=== PATIENT | male | born 1940 | race Caucasian/White ===

== ENCOUNTER 2016-05-25 12:49 | Inpatient (IN) | payer MEDICARE, OTHER ==
[~2016-05-25] VITALS: Ht 172.7 cm; Wt 77.2 kg
[2016-05-31] MEDS ORDERED: ATOR10TA15 PO (12:11)
[2016-05-31] MEDS ORDERED: AVOD0.5C PO (12:11)
[2016-05-31] MEDS ORDERED: CIAL5TAB PO (12:12)
[2016-05-31] MEDS ORDERED: TRIA37.53 PO (12:12)
[2016-05-31] MEDS ORDERED: SIME1CHW13 CHEW (12:14)
[2016-05-31] MEDS ORDERED: ZYRT10CA PO (12:14)
[2016-05-31] MEDS ORDERED: RANI1TAB5 PO (12:14)
[2016-05-31] MEDS ORDERED: VIAG100T PO (12:14)
[2016-05-31] MEDS ORDERED: MUCI30TA2 PO (12:14)
[2016-06-02] MEDS ORDERED: SODIUM CHLORID 0.9% 500 ML IV SCH (06:30)
[2016-06-02] MEDS ORDERED: LACTATED RINGER'S 1000 ML IV SCH (06:30)
[2016-06-02] MEDS ORDERED: INSULIN HUMAN REGULAR 1,000 UNITS/10 ML VIAL SQ PRN (06:30)
[2016-06-02] MEDS ORDERED: METOPROLOL TARTRATE 25 MG TAB PO PRN (06:30)
[2016-06-02] MEDS ORDERED: SODIUM CHLOR 0.9% 1000 ML INJ 1,000 ML IV SCH (06:30)
[2016-06-02] MEDS ORDERED: VANCOMYCIN HCL 1000 MG ON-CALL/NS 250 ML IV SCH ×2 (06:30)
[2016-06-02] MEDS ORDERED: SUGAMMADEX SODIUM 200 MG/2 ML VIAL IV PUSH ONE ×2 (07:02)
[2016-06-02 07:03] VITALS: BP 161/81; PULSE 65; RESP 18; TEMP 98.5; O2SAT 98
[2016-06-02] MEDS ORDERED: DEXAMETHASONE SOD PHOS 4 MG/ML VIAL ONE (07:03)
[2016-06-02] MEDS ORDERED: ACETAMINOPHEN 1000 MG/100 ML VIAL IV ONE (07:03)
[2016-06-02] MEDS ORDERED: HYDROmorphone HCL PF 2 MG/ML VIAL ONE (07:03)
[2016-06-02] MEDS ORDERED: GELFOAM SIZE 100 ONE ×2 (07:12→10:19)
[2016-06-02] MEDS ORDERED: THROMBIN (TOPICAL) 5,000 UNIT VIAL ONE ×2 (07:12→10:19)
[2016-06-02] MEDS ORDERED: BUPIVACAINE/EPINEPHRINE 0.25% 50 ML VIAL ONE (07:13)
[2016-06-02] MEDS ORDERED: ARTIFICIAL TEARS OPTH OINT 3.5 APPLIC/3.5 GM TUBO ONE (08:37)
[2016-06-02] MEDS ORDERED: ONDANSETRON HCL 4 MG/2 ML VIAL IV PUSH ONE (08:38)
[2016-06-02] MEDS ORDERED: NEOSTIGMINE 3 MG/3 ML SYR IV ONE (08:38)
[2016-06-02] MEDS ORDERED: PROPOFOL 200 MG/20 ML AMP IV ONE (08:38)
[2016-06-02] MEDS ORDERED: LACTATED RINGER'S 1000 ML INJ 1,000 ML IV ONE (08:38)
[2016-06-02] MEDS ORDERED: PHENYLEPH/NS 1000 MCG/10 ML SYR IV ONE (08:38)
[2016-06-02] MEDS ORDERED: BUPIVACAINE/EPINEPHRINE 0.5% 50 ML VIAL INFIL ONE (09:33)
[2016-06-02] MEDS: VANCOMYCIN HCL 1000 MG VIAL ONE ×2 (09:50→11:33)
[2016-06-02] MEDS ORDERED: MIDAZOLAM HCL 2 MG/2 ML VIAL ONE (12:13)
[2016-06-02] MEDS ORDERED: fentaNYL CITRATE 250 MCG/5 ML AMP ONE (12:13)
[2016-06-02] MEDS ORDERED: ZOLPIDEM TARTRATE 5 MG TAB PO PRN (12:15)
[2016-06-02] MEDS ORDERED: MAGNESIUM HYDROXIDE SUSP 30 ML CUP PO PRN (12:15)
[2016-06-02] MEDS ORDERED: SIMETHICONE 125 MG CHEWABLE TAB CHEW PRN (12:15)
[2016-06-02] MEDS ORDERED: ALUMINUM/MAGNESIUM/SIMETH 30 ML CUP PO PRN (12:15)
[2016-06-02] MEDS ORDERED: MAGNESIUM SULFATE INJ 2 GM in SODIUM CHLORIDE 0.9% INJ 100 ML IV PRN (12:15)
[2016-06-02] MEDS ORDERED: GUAIFENESIN PO PRN (12:15)
[2016-06-02] MEDS ORDERED: CETIRIZINE HCL 10 MG TAB PO PRN (12:15)
[2016-06-02] MEDS ORDERED: RESP: ALBUTEROL 2.5 MG/3 ML NEB (PRN) NEB (12:15)
[2016-06-02] MEDS ORDERED: POTASSIUM CHLOR 20 MEQ PREMIX 100 ML IV PRN (12:15)
[2016-06-02] MEDS ORDERED: diphenhydrAMINE HCL 50 MG/ML VIAL IV PRN (12:15)
[2016-06-02] MEDS ORDERED: CALCIUM GLUCONATE INJ 1 GM in SODIUM CHLORIDE 0.9% INJ 100 ML IV PRN (12:15)
[2016-06-02] MEDS ORDERED: ACETAMINOPHEN/HYDROcodone 325 MG/10 MG TAB PO PRN (12:15)
[2016-06-02] MEDS ORDERED: NALOXONE HCL 0.4 MG/ML AMP IV PRN (12:15)
[2016-06-02] MEDS ORDERED: DEXTROMETHORPHAN PO PRN (12:15)
[2016-06-02] MEDS ORDERED: CYCLOBENZAPRINE HCL 10 MG TAB PO PRN (12:15)
[2016-06-02] MEDS ORDERED: ONDANSETRON HCL 4 MG/2 ML VIAL IV PRN (12:15)
[2016-06-02] MEDS ORDERED: PROMETHAZINE INJ 25 MG/ML VIAL IM PRN (12:15)
[2016-06-02] MEDS ORDERED: ACETAMINOPHEN 325 MG TAB PO PRN (12:15)
[2016-06-02] MEDS ORDERED: SODIUM CHLORIDE 0.9% FLUSH 5 ML FLUSH IVF PRN (12:15)
[2016-06-02] MEDS ORDERED: cloNIDine HCL 0.1 MG TAB PO PRN (12:15)
[2016-06-02] MEDS ORDERED: BISACODYL 10 MG SUPP PR PRN (12:15)
--- NOTE | 2016-06-02 12:20 | PD.OP ---
cc: Aydin Oleary MD Operative Report Date of Surgery: Jun 02, 2016 Preoperative Diagnosis: Severe L4-5 degenerative disc disease with a grade 1 spondylolisthesis and facet arthropathy with foraminal stenosis; Intractable low back pain with right L4 radiculopathy Postoperative Diagnosis: Same Procedure: Right L4-5 transforaminal decompression with interbody fusion; L4-5 pedicle screw fixation; microsurgical technique Anesthesia: Gen. endotracheal by Amalia Cornejo Surgeon: Jed Giordano M.D. Statistician(s): Cyndi Redd Operation and Findings: Following initiation of general endotracheal anesthesia, the patient had a Cortez catheter placed along with sequential compression devices. A gram of vancomycin was administered intravenously and he was turned in a prone position on a Pierre frame, on a Alli table, and all pressure points adequately padded. The lumbosacral region was then prepped with Chloraprep and sterilely draped with Ioban along the usual sterile draping. A right paraspinal skin incision was then made extending from the L4-L5 level after infiltrating the skin with 0.5% Marcaine with epinephrine solution extending down through the fascia. The muscle fibers were split using avascular fatty plane and detached from the underlying facets, transverse process and lateral portion of lamina on the right side and a self-retaining retractor used for exposure. Intraoperative fluoroscopy was also used for level of confirmation along with microscope magnification for further dissection. There was significant facet and ligamentum flavum hypertrophy noted at the L4-5 levels. Right L4-5 facet was resected with a drill bit along with the lamina and there was severe foraminal and lateral recess stenosis from hypertrophied ligamentum flavum and facet which were decompressed bilaterally through the usual lateral approach. There was significant disc height collapse along with disc protrusion also leading to the foraminal stenosis along with osteophytes which were resected. Epidural hemostasis was achieved with bipolar cautery and Gelfoam with thrombin. Subsequently entered into the disc space at the L4-5 level with a #15 blade and boone were used for discectomy although this disc height was severely collapsed. I then packed the interspace with local autograft bone. Subsequently in order to facilitate the fusion and provide stabilization, pedicle screw fixation was undertaken using [place] spine screws on entry point at the right L4-5 levels at the junction of the transverse process and facet. Subsequently using AP and lateral fluoroscopy tap and screw placement. The screws were then connected with a kristen and locked in place with caps. The construct appeared very secure at this point. The area was then copiously irrigated with Vancomycin solution and powder. The retractors were removed and the bipolar cautery used for hemostasis. The muscle fascia was then approximated using 2-0 Vicryl interrupted stitches and then 3-0 Vicryl subcuticular stitches also placed in interrupted fashion. The final skin closure was completed with Mastisol and Steri-Strips. A sterile dressing was then applied. The patient then turned in supine position, extubated and taken to recovery room. There were no intraoperative complications. All sponge and needle counts were correct at the end of procedure. Estimated blood loss about 100 ml. Jed Giordano MD Jun 02, 2016 12:20
[2016-06-02] MEDS: NS + KCL 20 MEQ INJ 1,000 ML IV SCH ×2 (12:38→21:40)
[2016-06-02] MEDS ORDERED: *morphine SULFATE 8 MG/ML PERIprocedure ONLY ONE (12:45)
[2016-06-02] MEDS ORDERED: DEXTROMETHORPHAN SYRUP 7.5MG/5ML UDC PO PRN (13:00)
[2016-06-02] MEDS ORDERED: MORPHINE SULFATE 30 MG/30 ML PCA IV SCH (13:00)
[2016-06-02] MEDS ORDERED: PILL SPLITTER OTHER PRN (13:15)
[2016-06-02] MEDS ORDERED: DO NOT ADM ANY ANTICOAGULANT DRUGS XX PRN (13:30)
--- NOTE | 2016-06-02 13:32 | RADRPT ---
"EXAM DATE/TIME: 06/02/2016 07:50 [facility] COMPARISON: No previous studies available for comparison. INDICATIONS : Lamminectomy with screw and kristen placement L4,L5. MEDICAL HISTORY : None. SURGICAL HISTORY : None. ENCOUNTER: Initial ACUITY: 1 day PAIN SCORE: Non-responsive. LOCATION: Lumbar spine. FINDINGS: Matrix views reveal placement of transpedicular screws right side L4-5 with a single |. Alignment is negative CONCLUSION: Postsurgical change fusion right side L4-5 Vaibhav Miller MD on June 02, 2016 at 13:31 Board Certified Radiologist. This report was verified electronically."
[2016-06-02 13:47] LABS: BASOPHIL % 0.2 % (0.0-2.0); HEMATOCRIT 41.9 % (39.0-51.0); HEMO FLAGS DIFF FINAL; LYMPH % 5.2 % (9.0-44.0); LYMPHOCYTE # 0.7 TH/MM3 (1.0-4.8); MEAN CELL VOLUME 90.6 FL (80.0-100.0); MEAN CORPUSCULAR HEMOGLOBIN 29.2 PG (27.0-34.0); MEAN CORPUSCULAR HGB CONC 32.2 % (32.0-36.0); MONO % 1.1 % (0.0-8.0); NEUT % 93.5 % (16.0-70.0); PLATELET COUNT 196 TH/MM3 (150-450); RED BLOOD COUNT 4.63 MIL/MM3 (4.50-5.90); RED CELL DISTRIBUTION WIDTH 13.4 % (11.6-17.2); WHITE BLOOD COUNT 13.9 TH/MM3 (4.0-11.0)
[2016-06-02] MEDS: PCA - TOTAL MG MORPHINE DELIVERED PER SHIFT SCH ×2 (14:00→22:00)
[2016-06-02 14:19] LABS: BICARBONATE 25.4 MEQ/L (21.0-32.0); MAGNESIUM 1.6 MG/DL (1.5-2.5); POTASSIUM 3.7 MEQ/L (3.5-5.1)
[2016-06-02] MEDS: MENTHOL LOZENGE SUCK-ON PRN (14:35)
[2016-06-02 15:30] VITALS: BP 128/61; PULSE 78; RESP 19; TEMP 97.1; O2SAT 96
[2016-06-02] MEDS: ACETAMINOPHEN/HYDROcodone 325 MG/10 MG TAB PO PRN (17:01)
[2016-06-02 19:00] VITALS: BP 130/59; PULSE 76; RESP 17; TEMP 96.9; O2SAT 96
[2016-06-02 20:37] VITALS: O2SAT 96
[2016-06-02] MEDS ORDERED: TADALAFIL PO SCH (21:00)
[2016-06-02] MEDS: ATORVASTATIN 10 MG TAB PO SCH (21:41)
[2016-06-02] MEDS: DOCUSATE SODIUM 100 MG CAP PO SCH (21:41)
[2016-06-02] MEDS: TRIAMTERENE/HCTZ 37.5 MG/25 MG CAP PO SCH (21:41)
[2016-06-02] MEDS: SODIUM CHLORIDE 0.9% FLUSH 5 ML FLUSH IVF SCH (21:42)
[2016-06-02] MEDS: FINASTERIDE 5 MG TAB PO SCH (21:42)
[2016-06-02] MEDS: guaiFENesin E.R. 600 MG TAB PO PRN (21:45)
[2016-06-02 23:45] VITALS: BP 125/97; PULSE 88; RESP 18; TEMP 97.7; O2SAT 96
[2016-06-03] VITALS (7 sets, daily range): BP systolic 110–139; BP diastolic 55–62; PULSE 68–87; RESP 16–20; TEMP 95.9–99; O2SAT 93–98
[2016-06-03] MEDS ORDERED: FAMOTIDINE 20 MG TAB PO PRN (01:15)
[2016-06-03] MEDS: PCA - TOTAL MG MORPHINE DELIVERED PER SHIFT SCH (06:00)
[2016-06-03] MEDS: ACETAMINOPHEN/HYDROcodone 325 MG/10 MG TAB PO PRN ×3 (06:07→20:40)
--- NOTE | 2016-06-03 08:49 | HHI.NSPN ---
(Eleazar Genao) History Chief Complaint: Incisional pain controlled. (Eleazar Genao) Interval History 06/03/16: Pt underwent a L4/L5 TLIF with cage and pedicle screw fixation. He complains of incisional pain but states its controlled with current CATHODE MAKER. He states he has some difficulty with thought processing and would like to try to stop the CATHODE MAKER and use just the pain pills. He denies any radiculopathy or paresthesias in LEs. (Eleazar Genao) Review of Systems General: Negative for: fever, chills, insomnia Respiratory: Negative for: shortness of breath, cough, sputum Cardiovascular: Negative for: chest pain Gastrointestinal: Negative for: nausea, vomitting, diarrhea, constipation ( Eleazar Genao) Exam Results Vital Signs Date Time Temp Pulse Resp B/P Pulse Ox O2 Delivery O2 Flow Rate FiO2 06/03/16 06:00 17 06/03/16 04:00 99.0 86 110/55 96 06/02/16 21:38 Nasal Cannula 2.00 Intake and Output 06/02/16 06/02/16 06/03/16 08:00 16:00 00:00 Intake Total 1500 ml 765 ml Output Total 325 ml Balance 1175 ml 765 ml (Eleazar Genao) Physical Examination Resp: CTA bilaterally Heart: NSR no murmurs Abd: Soft positive bs Skin: No cyanosis or erythema. RN changed bandage this morning. Muscle: Moves LEs with good strength Neuro: Pt awake and alert. Follows commands well. Speech clear and appropriate. Some difficulty with thought processes per pt. (Eleazar Genao) Lab, Micro, Other Results Laboratory Tests Test 06/02/16 12:36 White Blood Count 13.9 TH/MM3 Red Blood Count 4.63 MIL/MM3 Hemoglobin 13.5 GM/DL Hematocrit 41.9 % Mean Corpuscular Volume 90.6 FL Mean Corpuscular Hemoglobin 29.2 PG Mean Corpuscular Hemoglobin 32.2 % Concent Red Cell Distribution Width 13.4 % Platelet Count 196 TH/MM3 Mean Platelet Volume 10.9 FL Neutrophils (%) (Auto) 93.5 % Lymphocytes (%) (Auto) 5.2 % Monocytes (%) (Auto) 1.1 % Eosinophils (%) (Auto) 0.0 % Basophils (%) (Auto) 0.2 % Neutrophils # (Auto) 13.0 TH/MM3 Lymphocytes # (Auto) 0.7 TH/MM3 Monocytes # (Auto) 0.2 TH/MM3 Eosinophils # (Auto) 0.0 TH/MM3 Basophils # (Auto) 0.0 TH/MM3 CBC Comment DIFF FINAL Differential Comment Sodium Level 140 MEQ/L Potassium Level 3.7 MEQ/L Chloride Level 104 MEQ/L Carbon Dioxide Level 25.4 MEQ/L Anion Gap 11 MEQ/L Blood Urea Nitrogen 20 MG/DL Creatinine 1.16 MG/DL Estimat Glomerular Filtration 61 ML/MIN Rate Random Glucose 145 MG/DL Calcium Level 8.8 MG/DL Magnesium Level 1.6 MG/DL 06/02/16 06/02/16 06/03/16 15:00 23:00 07:00 Intake Total 1500 ml 765 ml 1173 ml Output Total 325 ml 700 ml Balance 1175 ml 765 ml 473 ml Intake Oral 0 ml 480 ml IV Total 400 ml 765 ml 693 ml Other 1100 ml Output Urine Total 700 ml Estimated Blood Loss 100 ml Other 225 ml # Voids 1 # Bowel Movements 0 (Eleazar Genao) Medical Decision Making Impression and Plan A: 75 y/o M s/p L4/L5 TLIF with cage and pedicle screw fixation. P: Continue to monitor D/C CATHODE MAKER per pts request PT (Eleazar Genao) Attending Statement The exam, history, and the medical decision-making described in the above note were completed with the assistance of the mid-level provider. I reviewed and agree with the findings presented. I attest that I had a [id number] encounter with the patient on the same day, and personally performed and documented my assessment and findings in the medical record. (Jed Giordano MD) Eleazar Genao Jun 03, 2016 08:49 Jed Giordano MD Jun 03, 2016 17:18
[2016-06-03] MEDS ORDERED: ACETAMINOPHEN/HYDROcodone 325 MG/10 MG TAB PO PRN (09:00)
[2016-06-03] MEDS: MENTHOL LOZENGE SUCK-ON PRN (09:00)
[2016-06-03] MEDS: guaiFENesin E.R. 600 MG TAB PO PRN (09:00)
[2016-06-03] MEDS ORDERED: MORPHINE SULFATE 4 MG/ML INJ IV PUSH PRN (09:00)
[2016-06-03] MEDS: PANTOPRAZOLE SOD 40 MG DELAYED RELEASE TAB PO SCH (09:00)
[2016-06-03] MEDS: DOCUSATE SODIUM 100 MG CAP PO SCH ×2 (09:00→20:40)
[2016-06-03] MEDS: SODIUM CHLORIDE 0.9% FLUSH 5 ML FLUSH IVF SCH ×2 (09:00→20:42)
[2016-06-03] MEDS ORDERED: PNEUMOCOCCAL POLYVALENT INJ 25 MCG/0.5 ML SYR IM ONE (10:00)
[2016-06-03] MEDS ORDERED: INFLUENZA VIRUS VACCINE (QUADRIVALENT) 0.5 ML SYR IM ONE (10:00)
--- NOTE | 2016-06-03 16:17 | HHI.FF ---
Face to Face Verification Diagnosis: (1) Low back pain (2) Facet arthropathy, lumbar (3) Lumbar degenerative disc disease (4) Lumbar foraminal stenosis Physical Therapy Order: Evaluate and Treat, Improve ambulation, Strength and gait training Home Health Nursing Order: Wound care and dressing changes Nursing assessment with vital signs I have seen patient Luke Slaughter on 06/03/16. My clinical findings support the need for the requested home health care services because: Deconditioned w/ increased weakness High risk of falls I certify that my clinical findings support that this patient is homebound because: Post-op weakness Unsteady gait/balance Unable to use public transportation Eleazar Genao Jun 03, 2016 16:17
[2016-06-03] MEDS ORDERED: CYCL1TAB29 PO (17:23)
[2016-06-03] MEDS ORDERED: HYDR-3535 PO (17:23)
[2016-06-03] MEDS: ATORVASTATIN 10 MG TAB PO SCH (20:40)
[2016-06-03] MEDS: TRIAMTERENE/HCTZ 37.5 MG/25 MG CAP PO SCH (20:40)
[2016-06-03] MEDS: FINASTERIDE 5 MG TAB PO SCH (20:40)
[2016-06-04] VITALS: BP 105/57; PULSE 83; RESP 22; TEMP 98.8; O2SAT 95
[2016-06-04 04:00] VITALS: BP 116/59; PULSE 75; RESP 20; TEMP 98.9; O2SAT 94
[2016-06-04] MEDS: ACETAMINOPHEN/HYDROcodone 325 MG/10 MG TAB PO PRN ×3 (04:07→12:39)
[2016-06-04 08:31] VITALS: BP 114/55; PULSE 69; RESP 16; TEMP 98.6; O2SAT 93
[2016-06-04 08:40] VITALS: O2SAT 94
[2016-06-04] MEDS: PANTOPRAZOLE SOD 40 MG DELAYED RELEASE TAB PO SCH (08:46)
[2016-06-04] MEDS: DOCUSATE SODIUM 100 MG CAP PO SCH (08:46)
[2016-06-04] MEDS: SODIUM CHLORIDE 0.9% FLUSH 5 ML FLUSH IVF SCH (08:47)
[2016-06-04 12:00] VITALS: BP 144/69; PULSE 81; RESP 16; TEMP 97.5; O2SAT 92
--- NOTE | 2016-06-04 12:19 | HHI.DCPOC ---
Discharge Care Plan Diagnosis: (1) Status post lumbar spinal fusion Goals to Promote Your Health * To prevent worsening of your condition and complications * To maintain your health at the optimal level Directions to Meet Your Goals Take your medications as prescribed Follow your dietary instruction Follow activity as directed Keep your appointments as scheduled Take your immunizations and boosters as scheduled If your symptoms worsen call your PCP, if no PCP go to Urgent Care Center or Emergency Room Smoking is Dangerous to Your Health. Avoid second hand smoke Call the 24-hour hour crisis hotline for domestic abuse at Soraya Huffman Jun 04, 2016 12:19
--- NOTE | 2016-06-04 12:20 | HHI.NSPN ---
(Soraya Huffman) Note Status Status: Progress Note (Soraya Huffman) Interval History Interval History 06/03/16: Pt underwent a L4/L5 TLIF with cage and pedicle screw fixation. He complains of incisional pain but states its controlled with current FIELD SERVICE REPRESENTATIVE. He states he has some difficulty with thought processing and would like to try to stop the FIELD SERVICE REPRESENTATIVE and use just the pain pills. He denies any radiculopathy or paresthesias in LEs. 06/04: doing well, reports pain controlled with oral pain medications. ambulating. would like to go home today. denies any new symptoms overnight. ( Soraya Huffman) Labs, Micro, & Vital Signs Results Date Time Temp Pulse Resp B/P Pulse Ox O2 Delivery O2 Flow Rate FiO2 06/04/16 08:40 94 06/04/16 08:31 98.6 69 16 114/55 93 06/04/16 04:00 98.9 75 20 116/59 94 06/04/16 00:00 98.8 83 22 105/57 95 06/03/16 20:08 97 06/03/16 20:00 98.5 68 16 132/60 98 06/03/16 16:54 18 06/03/16 16:00 98.5 70 20 139/60 95 06/04/16 07:00 Intake Total 1200 ml Output Total 130 ml Balance 1070 ml Constitutional Vital Signs Date Time Temp Pulse Resp B/P Pulse Ox O2 Delivery O2 Flow Rate FiO2 06/04/16 08:40 94 06/04/16 08:31 98.6 69 16 114/55 93 06/04/16 04:00 98.9 75 20 116/59 94 06/04/16 00:00 98.8 83 22 105/57 95 06/03/16 20:08 97 06/03/16 20:00 98.5 68 16 132/60 98 06/03/16 16:54 18 06/03/16 16:00 98.5 70 20 139/60 95 06/04/16 07:00 Intake Total 1200 ml Output Total 130 ml Balance 1070 ml (Soraya Huffman) Review of Systems/Exam Exam Mr. Coronado is alert, sitting up in chair comfortably with back brace. Speech is fluent. Cranial nerve examination: pupils to be equal, round and reactive to light. Extra-ocular movements are intact. Facial motor are normal and symmetrical. Gross hearing appears intact. Neck: soft, supple Muscle strength: 5/5 to both iliopsoas, quadriceps, hamstrings, plantarflexion and dorsiflexion in lower extremities. stood up from chair without difficulties (Soraya Huffman) Medications Current Medications Current Medications Medications (Trade) Dose Ordered Sig/Veto Route PRN Reason Start Time Stop Time Status Last Admin Dose Admin Atorvastatin Calcium (Lipitor) 10 mg HS PO 06/02/16 21:00 06/03/16 20:40 Cetirizine HCl (ZyrTEC) 10 mg DAILY PRN PO ALLERGIES 06/02/16 12:15 Famotidine (Pepcid) 20 mg DAILY PRN PO HEARTBURN 06/03/16 01:15 Simethicone (Phazyme Chew) 125 mg DAILY PRN CHEW GAS RETENTION 06/02/16 12:15 Triamterene/HCTZ (Dyazide 37.5-25 Mg) 1 cap HS PO 06/02/16 21:00 06/03/16 20:40 Finasteride (Proscar) 5 mg HS PO 06/02/16 21:00 06/03/16 20:40 Patient Own Medication PT OWN MED: DIRK... HS PO 06/02/16 21:00 Hold IV Flush (NS Flush) 2 ml UNSCH PRN IVF FLUSH AFTER USING IV ACCESS 06/02/16 12:15 IV Flush (NS Flush) 2 ml BID IVF 06/02/16 21:00 06/04/16 08:47 Bisacodyl (Dulcolax Supp) 10 mg DAILY PRN MT CONSTIPATION 06/02/16 12:15 Docusate Sodium (Colace) 100 mg BID PO 06/02/16 21:00 06/04/16 08:46 Magnesium Hydroxide (Milk Of Magnesia Liq) 30 ml DAILY PRN PO CONSTIPATION 06/02/16 12:15 06/03/16 19:19 Al Hydrox/Mg Hydrox/Simethicone (Mag-Al Plus Susp Liq) 30 ml Q6H PRN PO DYSPEPSIA 06/02/16 12:15 Pantoprazole Sodium (Protonix) 40 mg DAILY PO 06/03/16 09:00 06/04/16 08:46 Ondansetron HCl (Zofran Inj) 4 mg Q6H PRN IV NAUSEA OR VOMITING 06/02/16 12:15 06/02/16 21:40 Promethazine HCl 25 mg 25 mg Q4H PRN IM NAUSEA OR VOMITING 06/02/16 12:15 06/03/16 19:20 Calcium Gluconate 1 gm/Sodium Chloride 110 ml @ 110 mls/hr UNSCH PRN IV SEE LABEL COMMENTS 06/02/16 12:15 Potassium Chloride 100 ml @ 50 mls/hr UNSCH PRN IV POTASSIUM LESS THAN 4 06/02/16 12:15 Magnesium Sulfate/ Sodium Chloride (Magnesium Sulfate Inj/NS Inj) 104 ml @ 100 mls/hr UNSCH PRN IV MAGNESIUM LESS THAN 2 06/02/16 12:15 Acetaminophen/ Hydrocodone Bitart ([place] 10-325 Mg) 1 tab Q4H PRN PO PAIN SCALE 1 TO 5 06/02/16 12:15 06/04/16 08:47 Acetaminophen/ Hydrocodone Bitart ([place] 10-325 Mg) 2 tab Q4H PRN PO PAIN SCALE 6 TO 10 06/02/16 12:15 Cyclobenzaprine HCl (Flexeril) 10 mg Q8H PRN PO MUSCLE SPASM 06/02/16 12:15 Clonidine (Catapres) 0.1 mg Q6H PRN PO SYS BP GREATER THAN 170 MMHG 06/02/16 12:15 Acetaminophen (Tylenol) 650 mg Q4H PRN PO TEMPERATURE > 101.5 F 06/02/16 12:15 Menthol ([place] Shae) 1 lozenge UNSCH PRN SUCK-ON SORE THROAT 06/02/16 12:15 06/03/16 09:00 Zolpidem Tartrate (Ambien) 5 mg HS PRN PO INSOMNIA 06/02/16 12:15 Naloxone HCl (Narcan Inj) 0.4 mg UNSCH PRN IV RESPIRATORY RATE LESS THAN 10 06/02/16 12:15 Diphenhydramine HCl (Benadryl Inj) 25 mg Q6H PRN IV ITCHING 06/02/16 12:15 Guaifenesin (Mucinex Er) 600 mg BID PRN PO CHEST CONGESTION AND/OR COUGH 06/02/16 13:00 06/03/16 09:00 Dextromethorphan (Robitussin [place] Pediatric Cough Liq) 10 mg Q4H PRN PO CHEST CONGESTION AND/OR COUGH 06/02/16 13:00 Miscellaneous (Pill Splitter) 1 ea UNSCH PRN OTHER SEE LABEL COMMENTS 06/02/16 13:15 Acetaminophen/ Hydrocodone Bitart ([place] 10-325 Mg) 1 tab Q4H PRN PO PAIN SCALE 4 TO 10 06/03/16 09:00 Morphine Sulfate (Morphine Inj) 2 mg Q2HR PRN IV PUSH PAIN SCALE 6 TO 10 06/03/16 09:00 (Soraya Huffman) Medical Decision Making MDM Remarks 75 y/o male s/p L4/L5 TLIF with cage and pedicle screw fixation with Dr. Giordano , doing well, ambulating, surgical pain controlled (Soraya Huffman) Plan Plan Remarks neuro stable dc home with [facility] dw pt again regarding activity restrictions, s/s to watch for follow up with Dr. Giordano in 1 week or as scheduled (Soraya Huffman) Attending Statement The exam, history, and the medical decision-making described in the above note were completed with the assistance of the mid-level provider. I reviewed and agree with the findings presented. I attest that I had a [id number] encounter with the patient on the same day, and personally performed and documented my assessment and findings in the medical record. (Babak Burnett MD) Soraya Huffman Jun 04, 2016 12:20 Babak Burnett MD Jun 05, 2016 18:37
== END 2016-06-04 13:16 | disposition home health service (06) | DRG 460 ==
LOC: HSDI 06-02 05:53 → N06B 06-02 14:06
PROVIDERS: ADMIT Neurological Surgery; ATTEND Neurological Surgery
PROC: 0ST20ZZ Resection of Lumbar Vertebral Disc, Open Approach (ICD-10-PCS; 2016-06-02)
PROC: 0QB00ZZ Excision of Lumbar Vertebra, Open Approach (ICD-10-PCS; 2016-06-02)
PROC: 0SG00AJ Fusion of Lumbar Vertebral Joint with Interbody Fusion Device, Posterior Approach, Anterior Column, Open Approach (ICD-10-PCS; principal; 2016-06-02 08:38)
DX: M51.16 Intervertebral disc disorders with radiculopathy, lumbar region (principal); M25.78 Osteophyte, vertebrae; M48.06 Spinal stenosis, lumbar region; Z23 Encounter for immunization
CPT/HCPCS: 36415; 71020; 72100; 76000; 80048; 80053; 81001; 83735; 85025; 85610; 85730; 86850; 86900; 86901; 86920; 90471; 90472; 90686; 90732; 93005; 94150; C1713; G0008; G0009; J0131; J0690; J1100; J1170; J2250; J2270; J2370; J2405; J2550; J2710; J3010; J3370; J3480; J7050; J7120; Q2038

== ENCOUNTER → 2016-05-31 | Outpatient (CLI) | payer MEDICARE, OTHER ==
[~2016-05-31] MED LIST: ATOR10TA15 PO; AVOD0.5C PO; CIAL5TAB PO; CYCL1TAB29 PO; HYDR-3535 PO; MUCI30TA2 PO; RANI1TAB5 PO; SIME1CHW13 CHEW; TRIA37.53 PO; VIAG100T PO; ZYRT10CA PO
[2016-05-31 12:28] LABS: AUTOMATED NEUTROPHIL # 5.9 TH/MM3 (1.8-7.7); BASOPHIL % 0.5 % (0.0-2.0); EOSINOPHIL # 0.1 TH/MM3 (0-0.4); EOSINOPHIL % 1.1 % (0.0-4.0); HEMATOCRIT 43.8 % (39.0-51.0); HEMO FLAGS DIFF FINAL; LYMPH % 13.2 % (9.0-44.0); MEAN CORPUSCULAR HEMOGLOBIN 29.7 PG (27.0-34.0); MEAN CORPUSCULAR HGB CONC 33.4 % (32.0-36.0); MONO % 8.4 % (0.0-8.0); NEUT % 76.8 % (16.0-70.0); PLATELET COUNT 194 TH/MM3 (150-450); RED BLOOD COUNT 4.92 MIL/MM3 (4.50-5.90); RED CELL DISTRIBUTION WIDTH 13.2 % (11.6-17.2); WHITE BLOOD COUNT 7.7 TH/MM3 (4.0-11.0)
[2016-05-31 12:32] LABS: BLOOD, URINE NEG (NEG); GLUCOSE,URINE NEG (NEG); KETONE, URINE NEG (NEG); MUCUS URINE MOD /lpf (OCC); NITRITE,URINE NEG (NEG); URINE COLOR YELLOW (YELLW/STRAW)
[2016-05-31 12:33] LABS: COMMENT (UR) CULT NOT INDICATED; CULTURE IF INDICATED CULT NOT INDICATED
[2016-05-31 12:41] LABS: APTT (PATIENT) 26.1 SEC (24.3-30.1); PROTHROMBIN TIME - PATIENT 10.9 SEC (9.8-11.6)
[2016-05-31 12:58] LABS: ALKALINE PHOSPHATASE 69 U/L (45-117); ALT (GPT) 23 U/L (12-78); ANION GAP 9 MEQ/L (5-15); AST (GOT) 13 U/L (15-37); BICARBONATE 28.8 MEQ/L (21.0-32.0); BLOOD UREA NITROGEN 26 MG/DL (7-18); CHLORIDE 102 MEQ/L (98-107); GLOMERULAR FILTRATION RATE 60 ML/MIN (>89); GLUCOSE,FASTING 96 MG/DL (74-99); POTASSIUM 3.8 MEQ/L (3.5-5.1); SODIUM (NA) 140 MEQ/L (136-145); TOTAL BILIRUBIN ADULT 0.7 MG/DL (0.2-1.0)
--- NOTE | 2016-05-31 14:32 | RADRPT ---
EXAM DATE/TIME: 05/31/2016 13:08 [facility] COMPARISON: No previous studies available for comparison. INDICATIONS : Evaluate for pneumonia, pneumothorax or communicable disease. Preop chest for spine surgery on 7 MEDICAL HISTORY : None. SURGICAL HISTORY : None. ENCOUNTER: Initial ACUITY: 1 day PAIN SCORE: 0/10 LOCATION: Bilateral chest FINDINGS: PA and lateral views of the chest demonstrate the lungs to be symmetrically aerated without evidence of mass, infiltrate or effusion. The cardiomediastinal contours are unremarkable. Osseous structure s demonstrate degenerative changes but are otherwise intact CONCLUSION: No acute cardiopulmonary findings. Tyson Cade MD on May 31, 2016 at 14:29 Board Certified Radiologist. This report was verified electronically.
--- NOTE | 2016-06-01 16:58 | EKG ---
Date Performed: 05/31/2016 Time Performed: 12:33:49 PTAGE: 75 years EKG: Sinus rhythm Significant baseline artifact. NORMAL ECG NO PREVIOUS TRACING DOCTOR: Lucina Houston Interpretating Date/Time 06/01/2016 16:55:42
== END ==
LOC: CPRE 11:43
PROVIDERS: ATTEND Neurological Surgery
DX: Z01.810 Encounter for preprocedural cardiovascular examination (principal); M51.36 Other intervertebral disc degeneration, lumbar region; M99.83 Other biomechanical lesions of lumbar region; Z79.01 Long term (current) use of anticoagulants; Z01.812 Encounter for preprocedural laboratory examination; Z01.818 Encounter for other preprocedural examination
CPT/HCPCS: 36415; 71020; 80053; 81001; 85025; 85610; 85730; 86850; 86900; 86901; 86920; 93005

== ENCOUNTER 2017-11-14 07:00 | Inpatient (IN) ==
[2017-12-20] MEDS ORDERED: Chlorhexidine Gluconate 2% 1 Pack (2 Cloths) TOPICAL SCH (05:45)
[2017-12-20] MEDS ORDERED: Chlorhexidine 4% Topical 120 APPLIC/120 ML Bottle TOPICAL SCH (05:45)
[2017-12-20] MEDS ORDERED: Metoprolol Tartrate 25 MG Tablet PO SCH (05:45)
[2017-12-20] MEDS ORDERED: ceFAZolin Inj 2,000 MG in Sodium Chlor 0.9% Inj 80 ML IV.SIG SCH (06:00)
[2017-12-20] MEDS ORDERED: Sodium Chlor 0.9% Inj 500 ML IV.SIG SCH (06:00)
[2017-12-20] MEDS ORDERED: SODIUM CHLOR 0.9% IV.SIG SCH ×4 (06:00→11:00)
[2017-12-20] MEDS ORDERED: TRANEXAMIC ACID IV.SIG SCH ×4 (06:00→11:00)
[2017-12-20] MEDS ORDERED: Sodium Chlor 0.9% Inj 40 ML, Bupivacaine Liposo PF 1.3% Inj 20 ML P-ARTICULR SCH ×2 (06:00)
[2017-12-20] MEDS ORDERED: Famotidine PF Inj 20 MG/2 ML Vial ONE (06:10)
[2017-12-20] MEDS ORDERED: EPINEPHrine PF/SF Inj 1 MG/ML Ampul I-OCULAR ONE (06:12)
[2017-12-20] MEDS ORDERED: Bupivacaine/Dextrose 0.75% Inj 2 ML Ampul ONE (06:12)
[2017-12-20] MEDS ORDERED: Sodium Chlor 0.9% Inj 0 ML ONE (06:23)
[2017-12-20] MEDS ORDERED: Propofol Inj 500 MG/50 ML Vial ONE (06:23)
[2017-12-20] MEDS ORDERED: Dexmedetomidine Inj 200 MCG/2 ML Vial ONE (06:23)
[2017-12-20] MEDS ORDERED: Simethicone 125 MG Chew Tablet PO PRN (09:13)
[2017-12-20] MEDS ORDERED: Famotidine 20 MG Tablet PO PRN (09:13)
[2017-12-20] MEDS ORDERED: Morphine Inj 4 MG/ML Vial IV.PUSH PRN (09:15)
[2017-12-20] MEDS ORDERED: SODIUM CHLOR 0.9% IV.SIG ONE (09:15)
[2017-12-20] MEDS ORDERED: Post-op Orders (for Pharmacy) OTHER STA (09:15)
[2017-12-20] MEDS ORDERED: Bisacodyl 10 MG Supp RECTAL PRN (09:15)
[2017-12-20] MEDS ORDERED: Aluminum/Magnesium/Simethacone Susp 30 ML UDC PO PRN (09:15)
[2017-12-20] MEDS ORDERED: TRANEXAMIC ACID IV.SIG ONE (09:15)
[2017-12-20] MEDS ORDERED: Zolpidem Tartrate 5 MG Tablet PO PRN (09:15)
[2017-12-20] MEDS ORDERED: Acetaminophen 325 MG Tablet PO PRN (09:15)
--- NOTE | 2017-12-20 09:24 | P.OP ---
- Preoperative Diagnosis (1) Primary osteoarthritis of right hip - Postoperative Diagnosis (1) Primary osteoarthritis of right hip Date of procedure: 12/20/17 Procedure: Right total hip arthroplasty using Tia prosthesis Anesthesia: GETA, local (With Exparel) Surgeon: Robert Trejo MD Proof Machine Operator: FRANKO Morelos Estimated blood loss (mL): 500 Pathology: none sent Operation and Findings: Indications and Findings: This 76-year-old man has had several months worth of right hip pain that has been treated with anti-inflammatory agents, analgesics, activity modification and ambulatory aids. He has limited ambulation tolerance with pain on motion of the hip groin pain, pain on abduction, pain in moving his leg pain from standing from a seated position. He has not responded to conservative measures. Physical findings showed limitation of range of motion in the hip with tenderness on motion and an antalgic gait. Radiographic findings showed arthritic change in the right hip with limited joint space and osteophytes. There appeared to be a fairly large subchondral cyst in the femoral head. There is prominence of the lateral aspect of the femoral head consistent with femoral acetabular impingement. Operative findings: There is degenerative change in the hip with loss of articular cartilage particularly at the depths of the acetabulum. There is prominence of the lateral aspect of the femoral head. Implants: The acetabular component was a 54 mm outer diameter Tritanium cluster shell with a 36 mm inner diameter 0 X3 polyethylene liner. The femoral component was an Accolade 2 size 6 x 132. The femoral head was Biolox delta size 36 mm outer diameter with a -5 mm offset. The patient was brought to the clean air operating suite and a general endotracheal anesthetic was administered. The patient was positioned into a lateral position with the operative hip up on a EnglishUpet lateral positioner. The hip and lower extremity were prepped with alcohol, Hibiclens and ChloraPrep and draped in the usual manner with the hip draped free. Patient received prophylactic antibiotics preoperatively. The patient also received tranexamic acid preoperatively. An appropriate timeout procedure was carried out. An incision was made from the midportion of the greater trochanter proximally and posteriorly paralleling the fibers of the gluteus chrissy. The incision was deepened through subcutaneous tissues down to the fascia jun and gluteus fascia. The gluteus fascia was then split longitudinally in line with its fibers up to the upper portion of the fascia jun. With wound towels in place, the Charnley retractor was inserted. The sciatic nerve was identified and protected throughout the procedure. Dissection was then carried down to the interval between the gluteus minimus and the piriformis. A retractor was inserted. The piriformis and obturator conjoined tendon was released from the greater trochanter and reflected off the capsule. A capsulotomy was made longitudinally along the femoral neck to the base of the femoral neck and then curved distally along the posterior aspect of the greater trochanter. The hip was internally rotated. Further release of the external rotators was carried out exposing the hip. The hip was dislocated. The femoral neck was transected at the appropriate level using the oscillating saw placement of appropriate retractors. The femoral head was removed. Preparation of the femur was initiated with a box osteotome followed by a curet to identify the medullary canal. Broaching was then initiated with the size 0 broach and went in 1 size increments up to size 6. The broach handle was removed. The femoral neck was then trimmed with a calcar planar. Attention was then directed to the acetabulum. Soft tissues were debrided from the acetabulum. Retractors were placed about the acetabulum. Reaming was then initiated with the 45 millimeter reamer and went in 1-2 mm increments up to the 52 millimeter diameter reamer. A trial reduction with the 52 millimeter trial prosthesis was carried out. This would not seat appropriately; therefore, reaming was carried out to 54 mm and a 54 mm trial was impacted into place. When this was deemed to be appropriate, the trial prosthesis was removed. The acetabulum was irrigated and cleaned. The actual prosthesis as noted above was impacted into place and seated appropriately. Drill holes were made and sounded. Appropriate sized screws were inserted to stabilize the acetabulum further. The liner as noted above was inserted into the acetabular shell and impacted into place. Osteophytes were trimmed from the acetabulum. Local anesthetic was administered throughout the area of the acetabulum and anterior aspect of the femur. The trial neck was placed on the broach for the above- noted prosthesis. The femoral head trial was placed onto the femoral neck . A trial reduction was carried out. Adjustment was made as needed. The stability , leg length and motion were excellent. There was no pistoning. The trial prosthesis was removed. The broach was removed. The femoral component was impacted into the medullary canal of the femur after irrigation and suctioning. When this was appropriately seated a trial reduction was again carried out with the trial prosthesis. There was no pistoning. The leg length was appropriate. The stability and motion were excellent. The trial prosthesis was then removed. After cleaning and drying the trunion of the femoral component, the above-noted femoral head was impacted onto the trunnion. The hip was reduced. The stability and mobility were again checked along with leg lengths as noted above. The hip was positioned appropriately and closure commenced after the remainder of the local anesthetic was injected throughout the hip. The external rotators and capsule were repaired with #1 Vicryl interrupted transosseous sutures with a Krakw technique to reattach the external rotators and capsule to the posterior aspect of the greater trochanter. The capsule itself on the superior aspect was closed with #1 Vicryl interrupted [id number] sutures. The sciatic nerve was inspected. The fascia jun and gluteus fascia were repaired with #1 Vicryl interrupted [id number] sutures. The subcutaneous tissues were closed with 2-0 Vicryl interrupted simple sutures with buried knots. The skin was closed with a continuous subcuticular closure of 4-0 Monocryl. The wound was then approximated with Dermabond Prineo. A silver impregnated dressing was applied to the hip. A knee immobilizer was applied to the leg. The patient was transferred from the operating room to the recovery room in satisfactory condition having tolerated the procedure well. Counts are correct. Specimens: None. Estimated blood loss: 500 mL
--- NOTE | 2017-12-20 09:26 | P.DCO ---
- Physical Therapy Physical Therapy: Gait training Hip: Total hip, Protocol: Right, Posterior hip precautions, Progress to weight bearing Canvas Knee Splint: When in bed with 2 pillows between thighs Right Lower Extremity Weight Bearing: Weight bearing as tolerated Right Lower Extremity Range of Motion: Active ROM - Nursing Nursing: Dressing changes Dressing changes: Daily dressing change, Coverderm/Primapore Additional instructions: Do not remove Dermabond Prineo. - Certification Need for Home Health services: I have seen patient Luke Slaughter on 12/20/17. My clinical findings support the need for the requested home health care services because: Need for Home Health Services: Limited mobility due to disease progression, High risk of falls Homebound Certification: I certify that my clinical findings support that this patient is homebound because: Homebound Certification: Post-op weakness, Unsteady gait/balance, Unsafe to leave home unassisted
[2017-12-20] MEDS ORDERED: fentaNYL Citrate Inj 100 MCG/2 ML Ampul ONE ×2 (09:39)
[2017-12-20] MEDS ORDERED: *morphine SULFATE 4 MG/ML PERIprocedure ONLY ONE ×3 (09:43→10:07)
[2017-12-20] MEDS: Ketorolac Inj 30 MG/ML (IVP) Vial IV.PUSH SCH ×3 (09:50→21:35)
--- NOTE | 2017-12-20 10:31 | XR ---
EXAM DATE: 12/20/2017 10:27 AM EDT AGE/SEX: 76 years / Male INDICATIONS: Post op right hip surgery CLINICAL DATA: This is the patient's initial encounter. Patient reports that signs and symptoms have been present for 1 day and indicates a pain score of 8/10. MEDICAL/SURGICAL HISTORY: None. None. COMPARISON: POI, XR HIP W/ AP PELVIS, BILATERAL, 01/28/2016. . FINDINGS: Right total hip arthroplasty. The femoral and acetabular components are appropriately positioned with out fracture or dislocation. Unilateral transpedicular fixation rightward in the lower lumbar spine. CONCLUSION: 1. Appropriate postoperative appearance of the right hip status post total arthroplasty. No fracture or dislocation. 2. Unilateral transpedicular fixation rightward in the lower lumbar spine. Electronically signed by: Joon Tate MD 12/20/2017 10:30 AM EDT
[2017-12-20] MEDS ORDERED: Glycopyrrolate Inj 1 MG/5 ML Syringe IV.PUSH ONE (12:00)
[2017-12-20] MEDS ORDERED: Neostigmine Inj 5 MG/5 ML Syringe IV.PUSH ONE (12:00)
[2017-12-20] MEDS ORDERED: Lidocaine PF 1% Inj 5 ML Syringe INFILTRATN ONE (12:00)
--- NOTE | 2017-12-20 12:19 | P.CONIM ---
History of Present Illness Reason for Consult: post-op medical management Primary Care Provider: Aydin Oleary MD Chief Complaint: post-op medical management History of Present Illness: patient is a 76 y/o male with history of osteoarthritis and hypertension who underwent right total hip arthroplasty today. at the time of my evaluation he was in no acute distress but complaining of mild pain to the right hip along with mild nausea. otherwise he denies any other complaints. Review of Systems All other systems reviewed negative except as stated in HPI PMFSH - History History Provided By: Patient - Medical History Medical History: Medical History (Last Reviewed 12/20/17 @ 12:35 by Erik Cortes) GERD (gastroesophageal reflux disease) Hx deployment Hypertension Joint pain Osteoporosis Wears glasses - Surgical History Surgical History: Surgical History (Last Reviewed 12/20/17 @ 12:35 by Erik Cortes) History of laminectomy History of strabismus surgery - Family History Family History: Family History (Last Updated 12/20/17 @ 12:16 by Sarai Garcia MD) Father Family history of cancer - Tobacco History Second Hand Smoke Exposure: No Smoking Status: Former smoker - Alcohol History How Often Do You Have a Drink Containing Alcohol: 2 to 3 times a week - Substance Use History Substance History: No History of Abuse - Travel History Recent Travel in the [place] Within the Last 8 Weeks: No Recent Travel Out of the Country Within the Last 8 Weeks: No Medications and Allergies Active Medications: Active Medications Acetaminophen (Tylenol) 650 mg PO Q6H PRN PRN Reason: Pain Less Than 3 On Scale Hydrocodone Bitart/Acetaminophen ([place] 7.5/325) 1 tab PO Q4H PRN PRN Reason: PAIN SCALE 4 TO 6 MODERATE Hydrocodone Bitart/Acetaminophen ([place] 7.5/325) 2 tab PO Q6H PRN PRN Reason: PAIN SCALE 7 TO 10 SEVERE Al Hydrox/Mg Hydrox/Simethicone (Mag-Al Plus Susp Liq) 30 ml PO Q6H PRN PRN Reason: INDIGESTION Al Hydroxide/Mg Hydroxide (Milk Of Magnesia Liq) 30 ml PO BID PRN PRN Reason: Mild Constipation Aspirin (Aspirin Chew) 81 mg PO BID [facility] Bisacodyl (Dulcolax Supp) 10 mg RECTAL DAILY PRN PRN Reason: SEVERE CONSITIPATION Cetirizine HCl (Zyrtec) 10 mg PO DAILY PRN PRN Reason: ALLERGIES Chlorhexidine Gluconate (Hibiclens 4% Topical) 1 applicatio TOPICAL ONCE [facility] Stop: 12/24/17 05:44 Last Admin: 12/20/17 05:45 Dose: 1 applicatio Chlorhexidine Gluconate (Chlorhexidine 2% Cloth) 3 pack TOPICAL [employer]OUND[employer]ACHINE [facility] Stop: 12/23/17 05:46 Last Admin: 12/20/17 05:30 Dose: 3 pack Diphenhydramine HCl (Benadryl) 25 mg PO Q6H PRN PRN Reason: ITCHING Famotidine (Pepcid) 10 mg PO BID PRN PRN Reason: Gastric Reflux Finasteride (Proscar) 5 mg PO DAILY [facility] Guaifenesin (Mucinex Er) 600 mg PO Q12H PRN PRN Reason: COUGH/CONGESTION Cefazolin Sodium 2,000 mg/ (Sodium Chloride) 100 mls @ 100 mls/hr IV.SIG [employer]ACHINE [facility] Stop: 12/20/17 18:00 Last Infusion: 12/20/17 07:32 Dose: Infused Lactated Ringer's (Lr 1000 Ml Inj) 1,000 mls @ 30 mls/hr IV.SIG .Q24H [facility] Stop: 12/23/17 05:46 Last Infusion: 12/20/17 07:34 Dose: Infused Sodium Chloride (Ns Inj) 500 mls @ 30 mls/hr IV.SIG .Q10H [facility] Stop: 12/23/17 05:46 Tranexamic Acid 737 mg/ Sodium (Chloride) 107.37 mls @ 200 mls/hr IV.SIG ONCE [facility] Last Infusion: 12/20/17 08:33 Dose: Infused Tranexamic Acid 737 mg/ Sodium (Chloride) 107.37 mls @ 200 mls/hr IV.SIG ONCE [facility] Stop: 12/20/17 13:00 Cefazolin Sodium 1,000 mg/ (Sodium Chloride) 100 mls @ 200 mls/hr IV.SIG Q6H [facility] Stop: 12/21/17 01:29 Lactated Ringer's (Lr 1000 Ml Inj) 1,000 mls @ 80 mls/hr IV.CONT .[id number] [facility] Last Admin: 12/20/17 09:41 Dose: 80 mls/hr Ketorolac Tromethamine (Toradol Inj) 15 mg IV.PUSH Q6H [facility] Stop: 12/22/17 04:01 Last Admin: 12/20/17 09:50 Dose: 15 mg Lactulose (Lactulose Liq) 30 ml PO DAILY PRN PRN Reason: SEVERE CONSITIPATION Metoprolol Tartrate (Lopressor) 25 mg PO [employer] [facility] Stop: 12/23/17 05:46 Last Admin: 12/20/17 06:37 Dose: Not Given Miscellaneous Information ([facility] [employer] Nursing Information) 1 each OTHER UNSCH PRN PRN Reason: SEE LABEL COMMENTS Stop: 12/21/17 10:24 Morphine Sulfate (Morphine Inj) 2 mg IV.PUSH Q3H PRN PRN Reason: BREAKTHROUGH PAIN Ondansetron HCl (Zofran Odt) 4 mg PO Q6H PRN PRN Reason: NAUSEA OR VOMITING Patient Own Medication - ( Tadalafil [Cialis] 5 Mg) 1 each PO DAILY [facility] Povidone Iodine (Betadine 5% Antisepsis Kit) 1 applicatio EACH NARE [employer] [facility] Stop: 12/23/17 05:46 Last Admin: 12/20/17 05:50 Dose: 1 applicatio Senna/Docusate Sodium (Naomi-Colace) 1 tab PO BID [facility] Sennosides (Senokot) 17.2 mg PO BID PRN PRN Reason: Moderate Constipation Simethicone (Phazyme Chew) 125 mg PO QID PRN PRN Reason: Gastrointestinal Spasms Or Cramping Sodium Chloride (Ns Flush) 2 ml IV.FLUSH BID [facility] Sodium Chloride (Ns Flush) 2 ml IV.FLUSH PRN PRN PRN Reason: FLUSH AFTER USING IV ACCESS Triamterene/HCTZ (Dyazide 37.5/25 Mg) 1 cap PO DAILY [facility] Zolpidem Tartrate (Ambien) 5 mg PO HS PRN PRN Reason: INSOMNIA Allergies Allergy/AdvReac Type Severity Reaction Status Date / Time Sulfa (Sulfonamide Allergy Severe Rash Verified 12/20/17 06:26 Antibiotics) lactose Allergy Intermediate Diarrhea Verified 12/20/17 06:26 Home Medications Medication Instructions Recorded Confirmed Type acetaminophen [Acetaminophen Extra 500 mg PO Q6H PRN 12/01/17 12/20/17 History Strength] cetirizine 10 mg PO DAILY PRN 12/01/17 12/20/17 History dutasteride [Avodart] 0.5 mg PO DAILY 12/01/17 12/20/17 History guaifenesin 600 mg PO Q12H PRN 12/01/17 12/20/17 History guaifenesin [Mucinex] 600 mg PO Q12H 12/01/17 12/20/17 History ranitidine HCl 75 mg PO BID PRN 12/01/17 12/20/17 History sildenafil [Viagra] 100 mg PO DAILY PRN 12/01/17 12/20/17 History simethicone 125 mg PO QID PRN 12/01/17 12/20/17 History tadalafil [Cialis] 5 mg PO DAILY 12/01/17 12/20/17 History triamterene-hydrochlorothiazid 1 cap PO DAILY 12/01/17 12/20/17 History Exam Vital signs: Vital Signs 12/20/17 05:50 12/20/17 09:32 12/20/17 09:45 Temperature 99.0 F 97.5 F L Pulse Rate 61 112 H 81 Respiratory Rate 18 23 16 Blood Pressure 160/85 H 171/84 H 171/75 H Pulse Oximetry 98 100 99 12/20/17 10:00 12/20/17 10:15 12/20/17 10:30 Temperature Pulse Rate 76 66 63 Respiratory Rate 23 18 14 Blood Pressure 149/69 H 151/68 H 150/68 H Pulse Oximetry 97 97 100 Intake & Output 12/19/17 12/20/17 12/20/17 18:59 06:59 18:59 Intake Total 1807.73 / 1807.73 Output Total 550 / 550 Balance 1257.73 / 1257.73 Weight 73.6 kg Intake: IV 1314.73 / 1314.73 LR 1000 mL Inj 1,000 ML @ 30 1000 / 1000 mls/hr IV.SIG .Q24H [facility] Rx#: [id number] Cyklokapron Inj 736 MG In NS 214.73 / 214.73 Inj 100 ML @ 200 mls/hr IV.SIG ONCE ONE Rx#:[id number] Ancef Inj 2,000 MG In NS Inj 80 100 / 100 ML @ 100 mls/hr IV.SIG [employer] [facility] Rx#:[id number] Anesthesia Amount 493 / 493 Output: Estimated Blood Loss 550 / 550 Other: Weight On Admission 73.6 kg - Constitutional no acute distress - Routine HEENT Exam Eye: Present: PERRL - Routine Neck Exam Present: full ROM - Routine Respiratory Exam Present: CTA bilaterally - Routine Cardiovascular Exam Present: RRR - Routine Abdominal Exam Present: soft - Routine Extremities Exam Comments: no pedal edema. - Routine Neurological Exam Present: alert, oriented X3 Results - Labs Labs: Laboratory Results - last 24 hr 12/20/17 05:50 Blood Type A Negative Antibody Screen Negative - Imaging Impressions Hip X-Ray 12/20/17 09:12 CONCLUSION: 1. Appropriate postoperative appearance of the right hip status post total arthroplasty. No fracture or dislocation. 2. Unilateral transpedicular fixation rightward in the lower lumbar spine. Assessment and Plan - Plan A/P - osteoarthritis- s/p right total hip arthroplasty continue with pain control and PT- management per ortho. - hypertension; resumed home meds -DVT prophylaxis with aspirin bid- per ortho. [facility] will sign off and see him as needed. thank you for the consult. Discussed Condition With: the patient.
[2017-12-20] MEDS: Senna/Docusate Sodium 8.6/50 MG Tablet PO SCH (21:35)
[2017-12-20] MEDS: guaiFENesin 600 MG ER Tablet PO PRN (23:09)
[2017-12-21] MEDS: Ketorolac Inj 30 MG/ML (IVP) Vial IV.PUSH SCH ×4 (03:35→21:25)
--- NOTE | 2017-12-21 07:24 | P.PNOP ---
Subjective Interval history: Postop day #1 He is doing relatively well with his hip. He has been up to the bathroom, walking with a walker. His major complaint currently is urinary retention. He has required straight catheterization twice. Previously he has been evaluated by Seamus Flores MD, as a urologist. Physical therapy reports that the ambulation was not possible because of vertigo ; however, he was able to stand statically. He is somewhat ambivalent about post hospital care. He is asking about a half-way facility because of his 's illness. Physical Exam Vital signs: Vital Signs 12/20/17 09:32 12/20/17 09:45 12/20/17 10:00 Temperature 97.5 F L Pulse Rate 112 H 81 76 Respiratory Rate 23 16 23 Blood Pressure 171/84 H 171/75 H 149/69 H Pulse Oximetry 100 99 97 12/20/17 10:15 12/20/17 10:30 12/20/17 11:00 Temperature 97.5 F L Pulse Rate 66 63 70 Respiratory Rate 18 14 14 Blood Pressure 151/68 H 150/68 H 166/70 H Pulse Oximetry 97 100 98 12/20/17 12:00 12/20/17 16:00 12/20/17 20:00 Temperature 97.6 F 98 F 98.1 F Pulse Rate 79 76 72 Respiratory Rate 16 16 18 Blood Pressure 156/68 H 148/65 H 114/57 L Pulse Oximetry 100 100 94 L 12/21/17 00:00 12/21/17 04:00 Temperature 98.4 F 98.3 F Pulse Rate 81 81 Respiratory Rate 18 18 Blood Pressure 117/54 L 113/55 L Pulse Oximetry 98 93 L Intake & Output 12/20/17 12/21/17 12/21/17 18:59 06:59 18:59 Intake Total 2039.73 / 2039.73 600 / 600 Output Total 550 / 550 500 / 500 Balance 1489.73 / 1489.73 100 / 100 Weight 73.6 kg Intake: IV 1516.73 / 1516.73 100 / 100 LR 1000 mL Inj 1,000 ML @ 80 102 / 102 mls/hr IV.CONT .[id number] [facility] Rx# :[id number] LR 1000 mL Inj 1,000 ML @ 30 1000 / 1000 mls/hr IV.SIG .Q24H [facility] Rx#: [id number] Cyklokapron Inj 736 MG In NS 214.73 / 214.73 Inj 100 ML @ 200 mls/hr IV.SIG ONCE ONE Rx#:[id number] Ancef Inj 1,000 MG In NS Inj 100 / 100 100 / 100 100 ML @ 200 mls/hr IV.SIG Q6H [facility] Rx#:[id number] Ancef Inj 2,000 MG In NS Inj 80 100 / 100 ML @ 100 mls/hr IV.SIG [employer] ENGINE[employer] [facility] Rx#:[id number] Oral 30 / 30 500 / 500 Anesthesia Amount 493 / 493 Output: Urine 0 / 0 Estimated Blood Loss 550 / 550 Urine Amount (Catheter) 500 / 500 Straight 500 / 500 Other: Date of Last Bowel Movement 12/19/17 Narrative: He is resting comfortably, supine in bed. The dressing is dry and intact. The neurovascular status is intact. - Urinary Catheter Management Straight Cath placed during this visit: yes, but has since been removed by the nurse Reason for continuing: Not indwelling catheter Insertion date: 12/21/17 Insertion time: 01:00 Removal date: 12/21/17 Removal time: 01:20 Results - Labs CBC & Chem 7: 12/21/17 06:35 - Imaging Impressions Hip X-Ray 12/20/17 09:12 CONCLUSION: 1. Appropriate postoperative appearance of the right hip status post total arthroplasty. No fracture or dislocation. 2. Unilateral transpedicular fixation rightward in the lower lumbar spine. - Procedures Right total hip arthroplasty using [place] prosthesis on 12/20/2017 Assessment and Plan - Ortho Post Op Day # 1 - Problem List (1) Primary osteoarthritis of right hip Code(s): M16.11 - Unilateral primary osteoarthritis, right hip Status: Acute (2) Status post total replacement of right hip Code(s): Z96.641 - Presence of right artificial hip joint Status: Acute Plan: Continue postop care and PT. (3) Postoperative urinary retention Code(s): N99.89 - Other postprocedural complications and disorders of genitourinary system; R33.8 - Other retention of urine Status: Acute Plan: A consultation will be obtained with [facility]. - Assessment and Plan Condition: Good. Orthopedically stable. DVT prophylaxis: TEDs, aspirin, sequentials. Discharge plans: Home with home health care versus half-way facility. An appointment was scheduled through the office. Prescriptions: [place] 7.5/325; Patient is having significant pain caused by a total hip arthroplasty which will last more than 3 days. Trial of Tylenol has not helped. I believe that it is medically necessary to treat patients pain because it is affecting patients ability to participate in postoperative rehabilitation and perform activities of daily living in a comfortable and efficient manner.
[2017-12-21 07:44] LABS: Hematocrit 32.3 % (39.0-51.0); Hemoglobin 10.8 gm/dL (13.0-17.0)
--- NOTE | 2017-12-21 08:07 | P.DS ---
Date of admission: 12/20/17 05:13 Primary care physician: Aydin Oleary MD Attending physician on discharge: Robert Trejo Anticipated date of discharge: 12/21/17 Brief History from admission: This 77-year-old man has had long-standing pain in his right hip, nonresponsive to conservative measures as detailed in the history and physical examination. He has not responded to anti-inflammatory agents, analgesics, activity modification or ambulatory aids. This has interfered with his activities of daily living. Physical findings showed limited range of motion in the hip with tenderness on motion and an antalgic gait. X-rays showed degenerative changes in the hip with narrowed joint space, eburnation and osteophytes. DS: Diagnosis - Discharge Diagnosis (1) Primary osteoarthritis of right hip Status: Chronic Diagnosis: Principal (2) Status post total replacement of right hip Status: Acute Diagnosis: Principal (3) Postoperative urinary retention Status: Acute Diagnosis: Secondary DS: Summary Hospital Course: The patient was admitted as noted above. The above noted operative procedure was carried out that day. Preoperatively prophylactic antibiotics were administered Ancef according to protocol. These were continued postoperatively. The patient also received tranexamic acid to help with hemostasis according to protocol. In the postanesthesia care unit mechanical methods of DVT prophylaxis in the form of BLANQUITA stockings and sequentials were initiated. Physical therapy was initiated on the day of surgery. On postoperative day #1 physical therapy continued. DVT prophylaxis with aspirin 81 mg was initiated at this time. The patient continued physical therapy throughout the hospitalization. The distance walked and range of motion improved throughout the hospitalization. Overnight the patient had experienced urinary retention with need for catheterization. Consultation with urology was obtained. The patient was discharged on postoperative day [] with the disposition being to []. An appointment for follow-up was made prior to admission. - Time Spent with Patient Total time spent providing and/or coordinating discharge services: Greater than 30 minutes - Quality: VTE Deep Vein Thrombosis/Pulmonary Embolism Present on Admission: No Exam Vital signs: Vital Signs 12/20/17 09:32 12/20/17 09:45 12/20/17 10:00 Temperature 97.5 F L Pulse Rate 112 H 81 76 Respiratory Rate 23 16 23 Blood Pressure 171/84 H 171/75 H 149/69 H Pulse Oximetry 100 99 97 12/20/17 10:15 12/20/17 10:30 12/20/17 11:00 Temperature 97.5 F L Pulse Rate 66 63 70 Respiratory Rate 18 14 14 Blood Pressure 151/68 H 150/68 H 166/70 H Pulse Oximetry 97 100 98 12/20/17 12:00 12/20/17 16:00 12/20/17 20:00 Temperature 97.6 F 98 F 98.1 F Pulse Rate 79 76 72 Respiratory Rate 16 16 18 Blood Pressure 156/68 H 148/65 H 114/57 L Pulse Oximetry 100 100 94 L 12/21/17 00:00 12/21/17 04:00 Temperature 98.4 F 98.3 F Pulse Rate 81 81 Respiratory Rate 18 18 Blood Pressure 117/54 L 113/55 L Pulse Oximetry 98 93 L Intake & Output 12/20/17 12/21/17 12/21/17 18:59 06:59 18:59 Intake Total 2039.73 / 2039.73 600 / 600 Output Total 550 / 550 500 / 500 Balance 1489.73 / 1489.73 100 / 100 Weight 73.6 kg Intake: IV 1516.73 / 1516.73 100 / 100 LR 1000 mL Inj 1,000 ML @ 80 102 / 102 mls/hr IV.CONT .[id number] [facility] Rx# :[id number] LR 1000 mL Inj 1,000 ML @ 30 1000 / 1000 mls/hr IV.SIG .Q24H [facility] Rx#: [id number] Cyklokapron Inj 736 MG In NS 214.73 / 214.73 Inj 100 ML @ 200 mls/hr IV.SIG ONCE ONE Rx#:[id number] Ancef Inj 1,000 MG In NS Inj 100 / 100 100 / 100 100 ML @ 200 mls/hr IV.SIG Q6H [facility] Rx#:[id number] Ancef Inj 2,000 MG In NS Inj 80 100 / 100 ML @ 100 mls/hr IV.SIG PRESCHOOL ASSISTANT [facility] Rx#:[id number] Oral 30 / 30 500 / 500 Anesthesia Amount 493 / 493 Output: Urine 0 / 0 Estimated Blood Loss 550 / 550 Urine Amount (Catheter) 500 / 500 Straight 500 / 500 Other: Date of Last Bowel Movement 12/19/17 Narrative: He is resting comfortably, supine in bed. The neurovascular status is intact. The dressing is dry and intact. Results Procedures completed during hospitalization: Right total hip arthroplasty using [place] prosthesis on 12/20/2017 Labs on day of discharge: Labs from last 24 hours 12/21/17 06:35 Hgb 10.8 L Hct 32.3 L - Impressions ITS Impressions Hip X-Ray 12/20/17 09:12 CONCLUSION: 1. Appropriate postoperative appearance of the right hip status post total arthroplasty. No fracture or dislocation. 2. Unilateral transpedicular fixation rightward in the lower lumbar spine. Discharge Plan - Discharge Disposition Patient Disposition: W/Home Health Service - Discharge Condition Condition: Stable - Discharge Order Discharge Orders: Discharge Order (Routine); Ordered 12/21/17 Ordered By: Robert Trejo - Discharge Details Anticipated Discharge Date: 12/21/17 - Physicians Team Primary Care Provider: Aydin Oleary Attending Provider: Robert Trejo Other Providers: Brendon Fajardo MD ; [facility] ; [facility] - Rxs /Orders / Referrals /Forms Prescriptions: New aspirin 81 mg Tablet,Chewable 81 mg PO BID RF: 0 Continue acetaminophen [Acetaminophen Extra Strength] 500 mg Tablet 500 mg PO Q6H PRN (Reason: Pain) cetirizine 10 mg Capsule 10 mg PO DAILY PRN (Reason: Allergy Symptoms) dutasteride [Avodart] 0.5 mg Capsule 0.5 mg PO DAILY guaifenesin 600 mg Tablet Extended Release 12hr 600 mg PO Q12H PRN (Reason: Cough) guaifenesin [Mucinex] 600 mg Tablet Extended Release 12hr 600 mg PO Q12H ranitidine HCl 75 mg Tablet 75 mg PO BID PRN (Reason: Gastric Reflux) sildenafil [Viagra] 100 mg Tablet 100 mg PO DAILY PRN (Reason: Erectile Dysfunction) simethicone 125 mg Tablet 125 mg PO QID PRN (Reason: Gastrointestinal Spasms Or Cramping) tadalafil [Cialis] 5 mg Tablet 5 mg PO DAILY triamterene-hydrochlorothiazid 37.5-25 mg Capsule 1 cap PO DAILY Referrals: Robert Trejo MD [Physician] - See Instructions Aydin Oleary MD [Primary Care Provider] - See Instructions - Discharge Instructions Patient Printed Instructions: Hydrocodone/Acetaminophen (By mouth), Aspirin ( By mouth), How to Choose and Use a Walker (GEN), Fall Prevention (DC), BLANQUITA Hose (DC), Total Hip Replacement (DC) Additional Instructions: Full weight bearing Follow up with Dr Trejo as arranged Canvas Knee spliint at night to sleep - Post Discharge Care Plan Care Plan Goals: Discharge Care Plan Goals for Total Hip Replacement You had a hip replacement surgery. This means your natural hip was replaced with an artificial joint (prosthesis). You may be recovering at home or in a rehabilitation facility. Either way, you must take care of your new hip. Here are some goals to help you heal well. Directions to Meet your Goals: 1. Activity & Exercises: * Take pain medicine as directed by your doctor. * Dont drive until your doctor says its OK. And never drive while taking opioid pain medicine. * Wear the support stockings you were given in the hospital as directed by your surgeon. * Dont sit for more than 30 to 45 minutes at one time. * Dont lean forward while sitting. * Dont cross your legs. * Keep your feet flat on the floor. Dont turn your foot or leg inward. This stresses your hip joint. * Use an elevated toilet seat for 6 weeks after surgery. * Nap if you are tired, but dont stay in bed all day. * Sit on a firm cushion when you ride in a car and avoid sitting too low. Try not to bend your hip too much when getting in and out of the car. 2. Prevent Falls/Injury: * Follow your doctors orders regarding how much weight to put on the affected leg. * Dont bend at the hip when you bend over. Don't bend at the waist to put on socks and shoes. And avoid picking up items from the floor. * Use a cane, crutches, a walker, or handrails until your balance, flexibility, and strength improve. And remember to ask for help from others when you need it. * Free up your hands so that you can use them to keep balance. Use a kevin pack , apron, or pockets to carry things. * Arrange your household to keep the items you need handy. Keep everything else out of the way. * Remove items that may cause you to fall, such as throw rugs and electrical cords. * Use nonslip bath mats, grab bars, an elevated toilet seat, and a shower chair in your bathroom * Sit on a shower stool or chair when you shower to keep from falling. 3. Precautions: * Prevent infection. Any infection will need to be treated immediately. Call your doctor right away if you think you might have an infection. * Tell your dentist that you have an artificial joint and take antibiotics as prescribed before any dental work. * Tell all your healthcare providers about your artificial joint before any medical procedure. * Maintain a healthy weight. Get help to lose any extra pounds. Added body weight puts stress on the joints. 4. Incision Care: * Prevent infection by washing your hands often. If an infection occurs, it will need to be treated right away. * Call your doctor right away if you think you may have an infection. Symptoms include a fever or an incision that leaks white, green, or yellow fluid. * Don't soak your incision in water until your doctor says its OK. This means no hot tubs, bathtubs, or swimming pools. * Follow your doctor's instructions for changing the dressing. * Dont rub the incision, or apply creams or lotions to it. * If you notice any redness or drainage around the bandage site, contact your surgeon's office immediately. 5. Follow-Up: Do Not miss your follow-up appointment. Keep up with all your appointments and yearly check ups When to call your doctor: Call your doctor right away if you have: Hip pain gets worse Pain or swelling in your calf or leg not related to your incision Tenderness or redness in your calf Fever of 100.4F (38C) or higher, or as directed by your healthcare provider Shaking chills Swelling or redness at the incision site gets worse Fluid draining from the incision Call 911: Call 911 right away if you have: Chest pain Shortness of breath Any pain or tenderness in your calf
[2017-12-21] MEDS: Finasteride 5 MG Tablet PO SCH (08:53)
[2017-12-21] MEDS: Senna/Docusate Sodium 8.6/50 MG Tablet PO SCH ×2 (08:53→21:24)
[2017-12-21] MEDS ORDERED: TADALAFIL 5 MG PO SCH (09:00)
--- NOTE | 2017-12-21 16:56 | P.CONURO ---
History of Present Illness Service: Urology Consult date: 12/21/17 Requesting Physician: Robert Trejo Reason for Consult: Postoperative urinary retention Primary Care Provider: Aydin Oleary MD Chief Complaint: post-op medical management History of Present Illness: 77-year-old gentleman with history BPH who is status post a right hip arthroplasty on December 20 of this year without complications. Postoperatively the patient developed urinary retention necessitating intermittent catheterizations. At the time of consultation the patient reported that he was voiding small amounts spontaneously. He reports being on dutasteride for obstructing BPH and reports that prior to his present hospitalization he had been voiding without any difficulty. He denies dysuria or gross hematuria. Review of Systems Cardiovascular: Denies chest pain Respiratory: Denies shortness of breath Gastrointestinal: Denies abdominal pain Genitourinary: Reports difficulty urinating, Denies blood in urine PMFSH - History History Provided By: Patient - Medical History Medical History: Medical History (Last Reviewed 12/21/17 @ 09:47 by Marcelle Mary) GERD (gastroesophageal reflux disease) Hx deployment Hypertension Joint pain Osteoporosis Wears glasses - Surgical History Surgical History: Surgical History (Last Reviewed 12/21/17 @ 09:47 by Marcelle Mary) History of laminectomy History of strabismus surgery - Family History Family History: Family History (Last Reviewed 12/20/17 @ 12:35 by Erik Cortes) Father Family history of cancer - Tobacco History Second Hand Smoke Exposure: No Smoking Status: Former smoker - Alcohol History How Often Do You Have a Drink Containing Alcohol: 2 to 3 times a week - Substance Use History Substance History: No History of Abuse - Travel History Recent Travel in the [place] Within the Last 8 Weeks: No Recent Travel Out of the Country Within the Last 8 Weeks: No - Immunization History Tetanus Immunization: Unsure Hx Influenza Vaccine This Season: No Medications and Allergies Active Medications: Active Medications Acetaminophen (Tylenol) 650 mg PO Q6H PRN PRN Reason: Pain Less Than 3 On Scale Hydrocodone Bitart/Acetaminophen ([place] 7.5/325) 1 tab PO Q4H PRN PRN Reason: PAIN SCALE 4 TO 6 MODERATE Last Admin: 12/21/17 15:43 Dose: 1 tab Hydrocodone Bitart/Acetaminophen ([place] 7.5/325) 2 tab PO Q6H PRN PRN Reason: PAIN SCALE 7 TO 10 SEVERE Last Admin: 12/20/17 17:47 Dose: 2 tab Al Hydrox/Mg Hydrox/Simethicone (Mag-Al Plus Susp Liq) 30 ml PO Q6H PRN PRN Reason: INDIGESTION Al Hydroxide/Mg Hydroxide (Milk Of Magnesia Liq) 30 ml PO BID PRN PRN Reason: Mild Constipation Aspirin (Aspirin Chew) 81 mg PO BID [facility] Last Admin: 12/21/17 08:52 Dose: 81 mg Bisacodyl (Dulcolax Supp) 10 mg RECTAL DAILY PRN PRN Reason: SEVERE CONSITIPATION Cetirizine HCl (Zyrtec) 10 mg PO DAILY PRN PRN Reason: ALLERGIES Chlorhexidine Gluconate (Hibiclens 4% Topical) 1 applicatio TOPICAL ONCE [facility] Stop: 12/24/17 05:44 Last Admin: 12/20/17 05:45 Dose: 1 applicatio Chlorhexidine Gluconate (Chlorhexidine 2% Cloth) 3 pack TOPICAL [employer] [facility] Stop: 12/23/17 05:46 Last Admin: 12/20/17 05:30 Dose: 3 pack Diphenhydramine HCl (Benadryl) 25 mg PO Q6H PRN PRN Reason: ITCHING Famotidine (Pepcid) 10 mg PO BID PRN PRN Reason: Gastric Reflux Finasteride (Proscar) 5 mg PO DAILY [facility] Last Admin: 12/21/17 08:53 Dose: 5 mg Guaifenesin (Mucinex Er) 600 mg PO Q12H PRN PRN Reason: COUGH/CONGESTION Last Admin: 12/20/17 23:09 Dose: 600 mg Lactated Ringer's (Lr 1000 Ml Inj) 1,000 mls @ 30 mls/hr IV.SIG .Q24H [facility] Stop: 12/23/17 05:46 Last Admin: 12/21/17 08:00 Dose: Not Given Sodium Chloride (Ns Inj) 500 mls @ 30 mls/hr IV.SIG .Q10H [facility] Stop: 12/23/17 05:46 Tranexamic Acid 737 mg/ Sodium (Chloride) 107.37 mls @ 200 mls/hr IV.SIG ONCE [facility] Last Infusion: 12/20/17 08:33 Dose: Infused Lactated Ringer's (Lr 1000 Ml Inj) 1,000 mls @ 80 mls/hr IV.CONT .[id number] [facility] Last Admin: 12/21/17 12:15 Dose: 80 mls/hr Ketorolac Tromethamine (Toradol Inj) 15 mg IV.PUSH Q6H [facility] Stop: 12/22/17 04:01 Last Admin: 12/21/17 15:43 Dose: 15 mg Lactulose (Lactulose Liq) 30 ml PO DAILY PRN PRN Reason: SEVERE CONSITIPATION Metoprolol Tartrate (Lopressor) 25 mg PO [employer] [facility] Stop: 12/23/17 05:46 Last Admin: 12/20/17 06:37 Dose: Not Given Morphine Sulfate (Morphine Inj) 2 mg IV.PUSH Q3H PRN PRN Reason: BREAKTHROUGH PAIN Ondansetron HCl (Zofran Odt) 4 mg PO Q6H PRN PRN Reason: NAUSEA OR VOMITING Last Admin: 12/20/17 13:45 Dose: 4 mg Patient Own Medication - ( Tadalafil [Cialis] 5 Mg) 1 each PO DAILY [facility] Povidone Iodine (Betadine 5% Antisepsis Kit) 1 applicatio EACH NARE [employer] [facility] Stop: 12/23/17 05:46 Last Admin: 12/20/17 05:50 Dose: 1 applicatio Senna/Docusate Sodium (Naomi-Colace) 1 tab PO BID [facility] Last Admin: 12/21/17 08:53 Dose: 1 tab Sennosides (Senokot) 17.2 mg PO BID PRN PRN Reason: Moderate Constipation Simethicone (Phazyme Chew) 125 mg PO QID PRN PRN Reason: Gastrointestinal Spasms Or Cramping Sodium Chloride (Ns Flush) 2 ml IV.FLUSH BID [facility] Last Admin: 12/21/17 08:54 Dose: 2 ml Sodium Chloride (Ns Flush) 2 ml IV.FLUSH PRN PRN PRN Reason: FLUSH AFTER USING IV ACCESS Triamterene/HCTZ (Dyazide 37.5/25 Mg) 1 cap PO DAILY [facility] Last Admin: 12/21/17 08:53 Dose: 1 cap Zolpidem Tartrate (Ambien) 5 mg PO HS PRN PRN Reason: INSOMNIA Last Admin: 12/20/17 23:09 Dose: 5 mg Allergies Allergy/AdvReac Type Severity Reaction Status Date / Time Sulfa (Sulfonamide Allergy Severe Rash Verified 12/20/17 06:26 Antibiotics) lactose Allergy Intermediate Diarrhea Verified 12/20/17 06:26 Home Medications Medication Instructions Recorded Confirmed Type acetaminophen [Acetaminophen Extra 500 mg PO Q6H PRN 12/01/17 12/20/17 History Strength] cetirizine 10 mg PO DAILY PRN 12/01/17 12/20/17 History dutasteride [Avodart] 0.5 mg PO DAILY 12/01/17 12/20/17 History guaifenesin 600 mg PO Q12H PRN 12/01/17 12/20/17 History guaifenesin [Mucinex] 600 mg PO Q12H 12/01/17 12/20/17 History ranitidine HCl 75 mg PO BID PRN 12/01/17 12/20/17 History sildenafil [Viagra] 100 mg PO DAILY PRN 12/01/17 12/20/17 History simethicone 125 mg PO QID PRN 12/01/17 12/20/17 History tadalafil [Cialis] 5 mg PO DAILY 12/01/17 12/20/17 History triamterene-hydrochlorothiazid 1 cap PO DAILY 12/01/17 12/20/17 History Physical Exam Vital Signs - 24 hr 12/20/17 20:00 12/21/17 00:00 12/21/17 04:00 Temperature 98.1 F 98.4 F 98.3 F Pulse Rate 72 81 81 Respiratory Rate 18 18 18 Blood Pressure 114/57 L 117/54 L 113/55 L Pulse Oximetry 94 L 98 93 L 12/21/17 08:00 12/21/17 12:00 12/21/17 16:00 Temperature 98.1 F 98.3 F 98.1 F Pulse Rate 71 79 81 Respiratory Rate 12 13 13 Blood Pressure 116/58 L 138/63 141/64 H Pulse Oximetry 99 98 96 Physical Exam: GENERAL: This is a well-nourished, well-developed patient, in no apparent distress. SKIN: No rashes, ecchymoses or lesions. Cool and dry. HEAD: Atraumatic. Normocephalic. No temporal or scalp tenderness. EYES: Pupils equal round and reactive. Extraocular motions intact. No scleral icterus. No injection or drainage. ENT: Nose without bleeding, purulent drainage or septal hematoma. Throat without erythema, tonsillar hypertrophy or exudate. Uvula midline. Airway patent. NECK: Trachea midline. No JVD or lymphadenopathy. Supple, nontender, no meningeal signs. GASTROINTESTINAL: Abdomen soft, non-tender, nondistended. No hepato-splenomegaly , or palpable masses. No guarding. GENITOURINARY: No CVA tenderness, bladder not distended MUSCULOSKELETAL: Extremities without clubbing, cyanosis, or edema. NEUROLOGICAL: Awake and alert. Cranial nerves II through XII intact. Motor and sensory grossly within normal limits. Five out of 5 muscle strength in all muscle groups. Normal speech. Laboratory Results - last 24 hr 12/21/17 06:35 Hgb 10.8 L Hct 32.3 L Result Diagrams: 12/21/17 06:35 Imaging: ITS Impressions Hip X-Ray 12/20/17 09:12 CONCLUSION: 1. Appropriate postoperative appearance of the right hip status post total arthroplasty. No fracture or dislocation. 2. Unilateral transpedicular fixation rightward in the lower lumbar spine. Assessment and Plan - Assessment (1) Postoperative urinary retention Code(s): N99.89 - Other postprocedural complications and disorders of genitourinary system; R33.8 - Other retention of urine Status: Acute Onset Date: ~12/20/17 - Plan Urologic impression: 1. History of BPH 2. Slowly resolving postoperative urinary retention likely of transient nature Recommendations: 1. Continue with dutasteride 0.5 mg by mouth daily 2. And tamsulosin 0.4 mg by mouth daily 2 weeks 3. Continue with clean intermittent catheterization as needed until voiding function fully returns 4. Office follow-up approximately 2-3 weeks after hospital discharge [phone]
[2017-12-21] MEDS: guaiFENesin 600 MG ER Tablet PO PRN (21:39)
[2017-12-22] MEDS: Ketorolac Inj 30 MG/ML (IVP) Vial IV.PUSH SCH (04:49)
[2017-12-22 05:14] LABS: Hemoglobin 10.6 gm/dL (13.0-17.0)
--- NOTE | 2017-12-22 06:44 | P.PNOP ---
Subjective Interval history: Postop day #2 He is doing well. He has minimal complaints. He is now voiding without difficulty. Physical therapy reports that the ambulation distance was 200 feet. Physical Exam Vital signs: Vital Signs 12/21/17 08:00 12/21/17 12:00 12/21/17 16:00 Temperature 98.1 F 98.3 F 98.1 F Pulse Rate 71 79 81 Respiratory Rate 12 13 13 Blood Pressure 116/58 L 138/63 141/64 H Pulse Oximetry 99 98 96 12/21/17 20:00 12/22/17 00:00 Temperature 98.7 F 98.6 F Pulse Rate 90 75 Respiratory Rate 18 15 Blood Pressure 134/63 127/61 Pulse Oximetry 97 93 L Intake & Output 12/21/17 12/21/17 12/22/17 06:59 18:59 06:59 Intake Total 600 / 600 1300 / 1300 Output Total 500 / 500 100 / 100 Balance 100 / 100 1200 / 1200 Weight 73.6 kg Intake: IV 100 / 100 100 / 100 Ancef Inj 1,000 MG In NS Inj 100 / 100 100 / 100 100 ML @ 200 mls/hr IV.SIG Q6H DANIEL Rx#:[id number] Oral 500 / 500 1200 / 1200 Output: Urine 100 / 100 Urine Amount (Catheter) 500 / 500 Straight 500 / 500 Other: # Voids 3 Date of Last Bowel Movement 12/19/17 12/19/17 # Bowel Movements 0 Narrative: He is resting comfortably, supine in bed. The neurovascular status is intact. The dressing is dry and intact. There is no erythema nor induration. - Urinary Catheter Management Straight Cath placed during this visit: yes, but has since been removed by the nurse Reason for continuing: Not indwelling catheter Insertion date: 12/21/17 Insertion time: 01:00 Removal date: 12/21/17 Removal time: 01:20 Results - Labs CBC & Chem 7: 12/22/17 04:56 Laboratory Results - last 24 hr 12/21/17 12/22/17 06:35 04:56 Hgb 10.8 L 10.6 L Hct 32.3 L 32.0 L - Procedures Right total hip arthroplasty using Tia prosthesis on 12/20/2017 Assessment and Plan - Problem List (1) Primary osteoarthritis of right hip Code(s): M16.11 - Unilateral primary osteoarthritis, right hip Status: Chronic (2) Status post total replacement of right hip Code(s): Z96.641 - Presence of right artificial hip joint Status: Acute (3) Postoperative urinary retention Code(s): N99.89 - Other postprocedural complications and disorders of genitourinary system; R33.8 - Other retention of urine Status: Acute - Assessment and Plan Condition: Good. Orthopedically stable. DVT prophylaxis: TEDs, aspirin, sequentials. Discharge plans: Home with home health care versus [facility] facility. An appointment was scheduled through the office. Prescriptions: [place] 7.5/325; Patient is having significant pain caused by a total hip arthroplasty which will last more than 3 days. Trial of Tylenol has not helped. I believe that it is medically necessary to treat patients pain because it is affecting patients ability to participate in postoperative rehabilitation and perform activities of daily living in a comfortable and efficient manner.
[2017-12-22 09:28] VITALS: PULSE 91
[2017-12-22] MEDS: Senna/Docusate Sodium 8.6/50 MG Tablet PO SCH (09:34)
[2017-12-22] MEDS: Finasteride 5 MG Tablet PO SCH (09:35)
[2017-12-22 12:40] VITALS: BP 112/56; RESP 13; TEMP 98.9; O2SAT 98
== END 2017-12-22 15:09 | disposition home health service (06) ==
LOC: HSDI 12-20 05:13 → N06 12-20 11:47
PROVIDERS: ADMIT Orthopaedic Surgery; ATTEND Orthopaedic Surgery